=== PATIENT | male | born 1935 | race Caucasian/White ===

== ENCOUNTER 2024-06-11 19:25 | Inpatient (IN) | payer MEDICARE, OTHER, SELFPAY ==
[2024-06-11] VITALS (7 sets, daily range): BP systolic 104–133; BP diastolic 56–85; BMI 33.4
[2024-06-11 14:08] LABS: % Basophils 0.8 % (0-2); % Eosinophils 2.6 % (0-6); % Immature Granulocytes 0.4 % (0-0.5); % Lymphocytes 9.7 % (20.5-51.1); % Monocytes 13.3 % (1.7-9.3); % Neutrophils 73.2 % (42.2-75.2); Absolute Basophils 0.1 10^3/uL (0-0.2); Absolute Eosinophils 0.2 10^3/uL (0-0.7); Absolute Lymphocytes 0.7 10^3/uL (1.2-3.4); Absolute Neutrophils 5.4 10^3/uL (1.4-6.5); Hematocrit 28.9 % (39.0-52.0); Hemoglobin 9.5 g/dL (13.0-18.0); Mean Corp Hgb Conc. 32.9 g/dL (33.0-37.0); Mean Corpuscular Hgb 35.2 pg (27.0-31.0); Mean Platelet Volume 9.8 fL (7.4-10.4); Nucleated Red Blood Cells % 0 % (-); Platelet Count 160 10^3/uL (130-400); Red Cell Dist. Width 18.5 % (11.5-14.5); White Blood Cell Count 7.4 10^3/uL (4.8-10.8)
[2024-06-11 14:23] LABS: ALT (SGPT) 15 U/L (0-50); AST (SGOT) 36 U/L (17-59); Albumin 3.4 g/dl (3.5-5.0); Alkaline Phosphatase 112 U/L (38-126); Blood Urea Nitrogen 24 mg/dl (9-20); Calcium 9.1 mg/dl (8.4-10.2); Carbon Dioxide 28 mmol/L (22-30); Chloride 105 mmol/L (98-107); Glucose 145 mg/dl (70-99); Potassium 3.9 mmol/L (3.5-5.1); Sodium 141 mmol/L (135-145); Total Bilirubin 2.8 mg/dl (0.2-1.3); Total Protein 7.9 g/dl (6.3-8.2); eGFR > 60.00
[2024-06-11 14:29] LABS: NT-proBNP 1890 pg/ml
--- NOTE | 2024-06-11 17:14 | ED.GENMED ---
History of Present Illness
General
Chief Complaint: Swelling
Source: patient and family
Time Seen by Provider: 06/11/24 16:50
History of Present Illness
History of Present Illness:
This patient is an 88-year-old male presents emergency department complaints of progressive swelling both in his legs and especially in his scrotum over the last few weeks. He always has lower extremity edema but is gotten progressively worse
associated with severe scrotal swelling. He notes that it has made urinating more difficult, as he was prescribed 80 mg of Lasix by his primary care doctor recently, and he needs to stand and orient a certain way in order to urinate properly. He
denies hematuria, dysuria, fever, chills, flank pain, chest pain, new shortness of breath, abdominal pain, or other complaints.
Past History
Past History
ED Past Medical History: HTN and Other (Severe TR, severe MR, heart failure with preserved ejection fraction, hypertension, A-fib)
ED Past Surgical History: Other (Hernia)
Social History
Tobacco: Smoker
Alcohol: Daily
Drug: None
Living: with family
Phy Exam
Physical Exam
Physical Exam:
GENERAL: Alert , in no apparent distress
EYE: pupils equal and reactive
NECK: Supple, no significant adenopathy.
ENT: o/p clr, mmm.
CARDIAC: Regular rate and rhythm .
LUNGS: Clear breath sounds bilaterally, no acute respiratory distress, no wheezes/rales/rhonchi
ABDOMEN: Soft, without focal tenderness, no r/g, no cvat
NEUROLOGICAL: Alert and oriented, no focal neuro deficits
SKIN: Warm and dry, skin intact.
MUSCULOSKELETAL: 3+ bilateral lower extremity edema, well perfused.
PSYCH: Normal and appropriate interaction.
: severe bilat scrotal edema with retraction of penis due to assoc edema. No warmth/fluctuance/drainage.
Course
Orders/Labs/Results
Orders:
Orders
06/11/24 13:46
Complete Blood Count/With Diff Urgent
Comprehensive Metabolic Panel Urgent
NT-proBNP Urgent
06/11/24 17:13
Furosemide [Lasix] 80 mg IV NOW STA
06/11/24 17:14
Electrocardiogram (*1) Stat
Reason for Study: Other
Other Reason for Exam: chest pain
Cardiac Monitoring- Treatment ONCE
EKG- Treatment ONCE
06/11/24 17:40
Troponin I Urgent
Abnormal Lab Results
06/11/24
13:46
RBC 2.70 L 10^6/uL
(4.70-6.10)
Hgb 9.5 L g/dL
(13.0-18.0)
Hct 28.9 L %
(39.0-52.0)
MCV 107.0 H fL
(80.0-94.0)
MCH 35.2 H pg
(27.0-31.0)
MCHC 32.9 L g/dL
(33.0-37.0)
RDW 18.5 H %
(11.5-14.5)
Absolute Lymphs (auto) 0.7 L 10^3/uL
(1.2-3.4)
Absolute Monos (auto) 1.0 H 10^3/uL
(0.1-0.6)
Lymphocytes % 9.7 L %
(20.5-51.1)
Monocytes % 13.3 H %
(1.7-9.3)
BUN 24 H mg/dl
(9-20)
Glucose 145 H mg/dl
(70-99)
Total Bilirubin 2.8 H mg/dl
(0.2-1.3)
Albumin 3.4 L g/dl
(3.5-5.0)
06/11/24 13:46
06/11/24 13:46
Vital Signs
Initial and Last Documented VS:
Initial Vital Signs
Temp Pulse Resp BP Pulse Ox
98.3 F 66 20 104/56 97
06/11/24 13:37 06/11/24 13:37 06/11/24 13:37 06/11/24 13:37 06/11/24 13:37
Last Documented Vital Signs
Temp Pulse Resp BP Pulse Ox
98.3 F 69 18 125/58 95
06/11/24 13:37 06/11/24 16:00 06/11/24 16:00 06/11/24 16:00 06/11/24 16:00
Update Note
Update Note:
Patient presents to the Emergency Department with ___swelling
Number and Complexity of Problems Addressed at the Encounter
� Chronic conditions affecting care:
� Acute Exacerbation and/or Progression of Chronic Illness:
� Differential Diagnosis includes: But not limited to venous stasis, hydrocele, heart failure, anasarca etc. etc.
Amount and/or Complexity of Data to be Reviewed and Analyzed
� I performed an independent evaluation of and my interpretation is:
EKG:
CT:
Xrays:
Laboratory Studies: Reviewed by me, nonspecific total bilirubin elevation, BUN elevation likely related to Lasix, mild anemia which is baseline as per daughter
Other:
� Review of other/old records reveals: Patient seen in 2019 and at that time his EF was 63%, echo showed LV that was dilated with biatrial enlargement and severe MR and TR. There was recommendation for valve replacement at that
time, however as per daughter he never saw a headlight adjuster ever since then. He also has a [id number] of 4 at that time and has been resistant to anticoagulation
� Clinical information was obtained by an independent historian: Daughter who is bedside and records
� Prescriptions/Medications Considered but not given:
� Further testing considered but not performed:
Risk of Complications and/or Morbidity or Mortality of Patient Management
� Social determinants of health affecting care:
� Discussion with other providers (PCP, Hospitalists, Consultants, etc):
� Escalation of care including admission/observation vs risk of discharge considered:
ED Attending Note
-
Portions of this chart may have been created with voice recognition software.� Occasional wrong word or��sound alike� substitutions may have occurred due to the inherent limitations of voice recognition software.
Discharge Plan
Departure
Patient Disposition: Admit
Date of Disposition: 06/11/24
Time of Disposition: 18:03
Prescriptions:
No Action
metoprolol tartrate 100 MG tablet
100 mg PO DAILY
hydrochlorothiazide 25 MG tablet
25 mg PO DAILY
lisinopril 40 MG tablet
40 mg PO DAILY
ibuprofen [Advil Liqui-Gel] 200 MG capsule
200 mg PO DAILY
amlodipine 5 MG tablet
5 mg PO DAILY
neomycin-polymyxin B-dexameth 5 ML drops,suspension
1 drp LEFT EYE QID
aspirin [Joy Chewable Aspirin] 81 MG tablet,chewable
81 mg PO DAILY
cholecalciferol (vitamin D3) 1,000 UNITS tablet
5,000 units PO DAILY
Interventions
Interventions:
*Risk Screen - Suicide Last Done: 06/11/24 13:37
*General Assessment Last Done: 06/11/24 13:37
*Neglect/Abuse Screening Last Done: 06/11/24 13:37
DH-Xzmhdk-Hnpiidjtaw Assessment Last Done: 06/11/24 16:56
ED- Cardiac Assessment Last Done: 06/11/24 16:56
ED- Pulmonary Assessment Last Done: 06/11/24 16:56
ED-Skin Assessment Last Done: 06/11/24 16:56
Discharge Date and Time
Print Language: ROMANSH
[2024-06-11] MEDS: LASIX 80 MG IV (17:40)
--- NOTE | 2024-06-11 18:42 | HPS.HSE ---
Family Physician
-
Family Physician: Darien Vasquez
Chief Complaint
-
swelling
History of Present Illness
88-year-old male past medical history of severe tricuspid regurgitation, severe mitral regurgitation, HFpEF, hypertension, presenting for progressive swelling in both of his legs and scrotum for the past few weeks. This has been urinating more
difficult. He was prescribed 80 mg of Lasix by his primary care physician recently. He needs to stand a certain way to urinate properly. Denies any blood in the urine. Denies fevers or chills, flank pain or chest pain or abdominal pain. He does
have shortness of breath with exertion. Denies any cough.
He has been having watery diarrhea for the past week. No abdominal pain or vomiting. No fevers or chills.
Medical History
Past Medical History
Past Medical History: Reports Other (severe tricuspid regurgitation, severe mitral regurgitation, HFpEF, hypertension)
Past Surgical History: Reports None
Social History
Tobacco: Smoker
Alcohol: Daily
Drug: None
Family History
Family History: Not pertinent
Allergies / Home Medications
Allergies reflects when Allergies were last updated in [facility].
Home Medications with original date entered in [facility]
Allergy/Medication List:
Allergies
Allergy/AdvReac Type Severity Reaction Status Date / Time
No Known Allergies Allergy Verified 06/11/24 13:43
Home Medications
amlodipine 5 mg tablet 5 mg PO DAILY 12/03/19
aspirin 81 mg chewable tablet (Joy Chewable Low Dose Aspirin) 81 mg PO DAILY 12/03/19
cholecalciferol (vitamin D3) 25 mcg (1,000 unit) tablet 5,000 units PO DAILY 12/03/19
hydrochlorothiazide 25 mg tablet 25 mg PO DAILY 12/03/19
ibuprofen 200 mg capsule (Advil Liqui-Gel) 200 mg PO DAILY 12/03/19
lisinopril 40 mg tablet 40 mg PO DAILY 12/03/19
metoprolol tartrate 100 mg tablet 100 mg PO DAILY 12/03/19
ktaumwyg-rzuabdoia-yxuciced 3.5 mg/mL-10,000 unit/mL-0.1% eye drops 1 drp LEFT EYE QID 12/03/19
Review of Systems
-
History Source: Patient
Constitutional: Reports No Symptoms
EENT: Reports No Symptoms
Respiratory: Reports No Symptoms
Cardiac: Reports No Symptoms
Abdomen/GI: Reports No Symptoms
: Reports No Symptoms
Musculoskeletal: Reports No Symptoms
Skin: Reports No Symptoms
Neurological: Reports No Symptoms
Endocrine: Reports No Symptoms
Hematologic/Lymphatic: Reports No Symptoms
Psych: Reports No Symptoms
Physical Exam
Vital Signs
Vital Signs
Temp Pulse Resp BP Pulse Ox
98.3 F 69 18 125/58 95
06/11/24 13:37 06/11/24 16:00 06/11/24 16:00 06/11/24 16:00 06/11/24 16:00
Physical Exam
General: Well Developed, Well Nourished and No Apparent Distress
HEENT: NormoCephalic, Moist mucous membranes and Atraumatic
Respiratory: Clear
Cardiac: S1/S2 and Regular Rhythm; No Murmur or Rub
GI: Soft, Non Tender, Non Distended and Normal Bowel Sounds; No Organomegaly
Rectal: Deferred by Provider
Musculoskeletal: No Clubbing, No Cyanosis and No Edema
Skin: No Rash
Neuro: Nonfocal/grossly intact
Laboratory Results
-
06/11/24 13:46
06/11/24 13:46
Laboratory Results
Total Bilirubin 2.8 mg/dl (0.2-1.3) H 06/11/24 13:46
AST 36 U/L (17-59) 06/11/24 13:46
ALT 15 U/L (0-50) 06/11/24 13:46
Alkaline Phosphatase 112 U/L (38-126) 06/11/24 13:46
Troponin I Cancelled 06/11/24 17:40
Data Reviewed
-
Lab Data: Labs Reviewed by me
Old Records: Reviewed
Impression/Plan
-
IMPRESSION:
PLAN:
# Acute CHF exacerbation
# Severe tricuspid regurgitation
# Severe mitral regurgitation
# Scrotal edema, possible urinary retention
-Check I's and O's, daily weights
-80 IV Lasix daily
-Bladder scan protocol
-Cardiology consulted
# Diarrhea likely viral gastroenteritis
-Check stool studies, C. difficile
-Clear liquid diet
Essential hypertension
-Continue amlodipine,
Paroxysmal atrial fibrillation
-Continue metoprolol
DNR/DNI
DVT prophylaxis�heparin
clear liquid diet
[2024-06-11 19:21] LABS: Troponin I 0.018 ng/ml
[2024-06-11] MEDS: HEPARIN 5000 UNITS SC (21:05)
[2024-06-12] VITALS (12 sets, daily range): BP systolic 100–139; BP diastolic 49–76; BMI 33.1; BMI 33.2
[2024-06-12 06:36] LABS: Hematocrit 27.3 % (39.0-52.0); Hemoglobin 9.3 g/dL (13.0-18.0); Mean Corp Hgb Conc. 34.1 g/dL (33.0-37.0); Mean Corpuscular Hgb 37.1 pg (27.0-31.0); Mean Corpuscular Volume 108.8 fL (80.0-94.0); Mean Platelet Volume 10.2 fL (7.4-10.4); Platelet Count 146 10^3/uL (130-400); Red Blood Cell Count 2.51 10^6/uL (4.70-6.10); Red Cell Dist. Width 18.2 % (11.5-14.5); White Blood Cell Count 4.5 10^3/uL (4.8-10.8)
[2024-06-12 07:20] LABS: Blood Urea Nitrogen 24 mg/dl (9-20); Calcium 8.8 mg/dl (8.4-10.2); Carbon Dioxide 27 mmol/L (22-30); Chloride 103 mmol/L (98-107); Estimated Creatinine Clearance 101 ml/min; Glucose 89 mg/dl (70-99); Potassium 3.5 mmol/L (3.5-5.1); Sodium 140 mmol/L (135-145); eGFR > 60.00
[2024-06-12] MEDS: HEPARIN 5000 UNITS SC ×2 (07:37→20:34)
[2024-06-12] MEDS: LASIX 80 MG IV ×2 (07:37→16:27)
--- NOTE | 2024-06-12 07:51 | CON.CAR ---
Addendum entered and electronically signed by Elias Pierce MD 06/12/24 13:14:
I saw and examined the patient.
The WARPING MILL OPERATOR's note was reviewed and I agree with the note.
Comment: 88-year-old male (known to Dr. Vargas, his primary television program director), with HFpEF, severe tricuspid regurgitation, severe mitral regurgitation, permanent atrial fibrillation (refuses oral anticoagulation), and hypertension who presented to the
emergency department last evening with a chief complaint of progressive swelling
Swelling already improving wiht IV diuresis, will continue
- IV Diuresis
Original Note:
Consultation
Consultation Request
Date/Time Consultation Requested: 06/11/2024 22:50
Date/Time Consultation Performed: 06/12/2024 07:50
Requesting Provider: Dr. Nevarez
Performing Provider: FABIENNE Haddad for Dr. Pierce
Reason for Consultation: Acute heart failure
Medical History
-
Chief Complaint: Progressive swelling
History of Present Illness:
Todd Sauceda is an 88-year-old male (known to Dr. Vargas, his primary television program director), with HFpEF, severe tricuspid regurgitation, severe mitral regurgitation, permanent atrial fibrillation (refuses oral anticoagulation), and hypertension who
presented to the emergency department last evening with a chief complaint of progressive swelling. His swelling has been getting worse over the past several weeks. His primary care physician gave him furosemide. He does not feel like he is
voiding that often. He also has scrotal swelling which he states causes trouble with urination. He also reports he has been having diarrhea for the past week. No chest pain. No shortness of breath. No orthopnea. No PND
Past Medical History
Past Medical History: Arrhythmias (Permanent atrial fibrillation), CHF, HTN and Valvular Disease (Mitral regurgitation, tricuspid regurgitation)
Past Surgical History: Orthopedic
Social History
Tobacco: Smoker
Alcohol: Daily (1 shot of fanta and 1 beer every night)
Personal: Single
Living: With Family
Employment: Retired
Family History
Family History: Reviewed & Not Pertinent
Allergies / Home Medications
Allergy/AdvReac Type Severity Reaction Status Date / Time
No Known Allergies Allergy Verified 06/11/24 13:43
�Medication �Instructions �Recorded �Confirmed �Type
amlodipine 5 mg tablet 5 mg PO DAILY 12/03/19 06/11/24 History
aspirin 81 mg chewable tablet 81 mg PO DAILY 12/03/19 12/03/19 History
(Joy Chewable Low Dose Aspirin)
ibuprofen 200 mg capsule (Advil 200 mg PO DAILY 12/03/19 12/03/19 History
Liqui-Gel)
lisinopril 40 mg tablet 40 mg PO DAILY 12/03/19 12/03/19 History
metoprolol tartrate 100 mg tablet 100 mg PO DAILY 12/03/19 12/03/19 History
ferrous sulfate 325 mg (65 mg mg 06/11/24 History
iron) tablet (Iron (ferrous
sulfate))
furosemide 40 mg tablet 40 mg BID 06/11/24 06/11/24 History
multivitamin 1 cap 06/11/24 History
potassium 20 mg chewable tablet 20 mg PO 06/11/24 History
Review of Systems
-
History Source: Patient
All other systems: Negative unless noted
Constitutional: Fatigue
EENT: No Symptoms
Respiratory: No Symptoms
Cardiac: No Symptoms
Abdomen/GI: No Symptoms
: No Symptoms
Musculoskeletal: Edema
Skin: No Symptoms
Neurological: No Symptoms
Endocrine: No Symptoms
Hematologic/Lymphatic: No Symptoms
Physical Exam
Vital Signs
Temp Pulse Resp BP Pulse Ox
97.9 F 74 26 104/59 91
06/12/24 07:48 06/12/24 07:45 06/12/24 07:45 06/12/24 07:37 06/12/24 07:45
Lab Results
06/12/24 05:10
06/12/24 05:10
Troponin I 0.018 ng/ml 06/11/24 18:44
Uhn-L-Litdnghnbtx Pept 1890 pg/ml 06/11/24 13:46
Physical Exam
General: Well Developed, Well Nourished, No Apparent Distress and Comfortable
HEENT: Normocephalic, Anicteric, Moist Mucous Membranes and Other (Hard of hearing)
Respiratory: Non Labored Respirations
Cardiac: S1/S2, Irregular Rhythm, Murmur (Holosystolic murmur /) and Peripheral Edema (+3 pitting LE edema)
Breast: Deferred by me
GI: Soft, Non Tender, Non Distended and Normal Bowel Sounds
Rectal: Deferred by Provider
Genito-urinary: No Costovertebral Tender
Musculoskeletal: No Clubbing and No Cyanosis
Skin: Warm and Dry
Neuro: AO x 3
Hematologic/Lymphatic: No Lymphadenopathy
Psych: Calm
Impression / Plan
-
I/P: 88M HFpEF, severe tricuspid regurgitation, severe mitral regurgitation, permanent atrial fibrillation (refuses oral anticoagulation), and hypertension who presented to the emergency department last evening with a chief complaint of progressive
swelling.
Primary television program director: Dr. Vargas
HFpEF, acute on chronic
-Continue furosemide, increase to twice daily dosing, this requires intensive monitoring
-Case management sprays SGLT2i
-Unclear if he is on amlodipine at home, if so would transition to another agent in the setting of lower extremity edema
-Heart failure education
-Trend daily weight, I/O, and BMP with diuresis
-Echocardiogram today
Permanent atrial fibrillation
-Rate controlled without AV tomi agent
-Oral Anticoagulation: None, refused
-[id number]: score at least 4 (Heart failure, HTN, age 75 or more)
Hypertension
-Home medication list needs to be updated
-BP soft with diuresis, follow
Valvular heart disease
-Severe tricuspid regurgitation by SALENA 11/2019
-Severe mitral regurgitation by SALENA 11/2019 but +1-2 by cardiac catheterization
Anemia, per primary
Diarrhea, per primary
SUBJECTIVE:
As above.
Data Reviewed
-
EKG: Report Reviewed by me (Atrial fibrillation, IVCD, rate 66)
Radiology: Report Reviewed by me
Medical Tests (Nuc Med, Echo etc): Report Reviewed by me (Echocardiogram and cardiac catheterization as above)
Labs: Labs Reviewed by me
Old Records: Reviewed
--- NOTE | 2024-06-12 10:06 | PHANOTE ---
MED REC NOTE- PATIENT DAUGHTER EXPLAINED THAT THE LISINOPRIL 40MG DAILY HAS BEEN ON HOLD SINCE JUNE 05 2024.
--- NOTE | 2024-06-12 10:09 | WOUNDNOTE ---
SACRUM/L BUTTOCK BRUISE
--- NOTE | 2024-06-12 10:10 | WOUNDNOTE ---
R LATERAL LOWER LEG
--- NOTE | 2024-06-12 10:11 | WOUNDNOTE ---
WON RN note: Patient admitted with increased leg and scrotal swelling.
See H&P for complete history. Lives with daughter Carmela and grandson.
PMH: Reports Other (severe tricuspid regurgitation, severe mitral regurgitation, HFpEF, hypertension)
Wound Location and type/assessment: Patient admitted with: Leg edema- lymphedema, R lateral lower leg venous ulcer. + audible pulses with Doppler, skin very dry and scaly. Daughter Carmela at bedside states legs always pink at baseline, much less
edema compared to admission. Patient able to turn with some assistance, has bruise on L buttock, sacrum is blanchable red, no pressure ulcers visible. MASD /dry irritated skin on Kassidy rectal area and scrotum. Heels are both intact, slightly boggy.
Daughter confirmed he sits allot, states for 1 week he has been sitting in a rocking chair with legs not being elevated. Also daughter states he uses a bed maloney instead of ambulating to BR, bruise suspected from bedpan. She bought a sit to stand
recliner chair for her Dad but he refuses to use it.
Appetite: Good.
Pressure redistribution devices in place: On Accumax, turning schedule and pillow under calves to offload heels.
Plan: Sacral clear silicone dressing applied to Sacrum, change q 3-4 days with sacral silicone foam, or if soiled. R lateral lower leg applied adaptic and silicone foam change q other day. foams applied to heels to protect. Moisturized legs, will
order mineral oil for tomorrow. With assist from nurse applied b/l knee high joshua wraps. Teaching with patient and daughter regarding skin/wound care, compression to lower legs, importance of leg elevation and that patient should use recliner chair
instead of hard rocking chair. Pressure ulcer prevention measures reviewed with patient and daughter. Patient states he understands. Will confirm orders with hospitalist and updated nurse Ramana.
Updated care plan and will follow as needed.
Note to case management of equipment requested for discharge: VN
Recommend follow up at wound care center upon discharge.
--- NOTE | 2024-06-12 12:32 | W.PN.HOSP.TC ---
Today's Communication/Plan
-
see outlined plan
Assessment / Plan
Assessment / Plan
Assessment:
acute on chronic HFpEF
Underlying valvular heart disease (severe MR, severe TR)
- update Echo
- continue IV Lasix; requires intensive monitoring of I/O, weights, lytes
Permanent A. Fib
- continue Metoprolol
- refused anticoagulation ([id number]: score at least 4 (Heart failure, HTN, age 75 or more)
Gastroenteritis
- stool studies pending
- clear liquid diet for now
Essential HTN
- hold CCB
- may need alternative agent
Anemia
- check anemia workup
DVT ppx: SC Heparin
Code: DNR/DNI
Anticipated Discharge: > 48 hours
Subjective/Interval History
-
Date of Service: June 12, 2024
feels improved, less SOB
weight 116kg from 118kg
Objective Data
-
Labs:
Laboratory Results
06/12/24
05:10
WBC 4.5 L
Hgb 9.3 L
Hct 27.3 L
Plt Count 146
Sodium 140
Potassium 3.5
Chloride 103
Carbon Dioxide 27
BUN 24 H
Creatinine 0.7
Glucose 89
Calcium 8.8
Vital Signs:
Vital Signs
Temp Pulse Resp BP Pulse Ox
97.9 F 74 26 104/59 91
06/12/24 07:48 06/12/24 07:45 06/12/24 07:45 06/12/24 07:37 06/12/24 07:45
I&O
06/11/24 06/12/24 06/13/24
06:59 06:59 06:59
Intake Total 240 / 240
Output Total 1200 / 1200 1100 / 1100
Balance -960 / -960 -1100 / -1100
Physical Exam
-
General: No Apparent Distress
HEENT: Normocephalic and Atraumatic
Respiratory: Negative Wheezes
Cardiac: Regular Rhythm and S1/S2
GI: Soft and Nontender
Genito-urinary: No Costovertebral Tender
Musculoskeletal: No Edema
Neuro: AO x 3
Hematologic / Lymphatic: No Lymphadenopathy
Psych: Calm
Data Reviewed
-
Total Time Spent with Patient (in minutes): 51
Labs: Labs Reviewed by me
--- NOTE | 2024-06-12 14:21 | CM ---
Addendum entered by Lelo Luis 06/12/24 14:30:
Of note, pt has a ramp entrance
Original Note:
CM met with pt and dtr/GIORGIO/Carmela bedside
Pt [place] the same property as his dtr, his 39 y/o grandson resides him and is home throughout the day
Pt is typically indep with use of a WW
Now uses a wheelchair while in the community as of a few weeks ago
Grandson or dtr provided supervision and coaxing cueing for personal care tasks
Family helps with home chores
Pt has no hx with VN/SNF
Denies financial insecurities
PCP- Darien Vasquez
Rx- Manfred
CM consulted for med pricing
Call [facility] [phone]
Farxiga 10 mg QD
Initially $277.14-30 day retail and $482.77-90 day mail order as pt has not met deductible
After deductible is met, 30 day retail- $117 and 90 day mail order- $322
Jardiance 10 mg QD
Initially $282.94-30 days and $498.76-90 day mail order as pt has not met deductible
After deductible is met, 30 day retail-$122 and 90 day mail order-$338
Update to cardio/Melinda
Pt will likely benefit from PT/OT once appropriate
Dtr noted she would like a hospital bed arranged on dc if possible, would be willing to take on rental costs if needed
Discharge Disposition- anticipate home, follow for VN or higher level needs
--- NOTE | 2024-06-12 18:20 | PTCARENOTE ---
1814 Pt arrived from ER via bed. Pt alert and verbalizing. Noted MD orders, place on telemetry current heart rhythm Atrial Fib (heart rate 80's).
VS stable, pulse ox 96% on room air. Pt's daughter at bedside,continue to monitor pt closely.
[2024-06-13 04:10] VITALS: BP 125/72
[2024-06-13 05:18] VITALS: BMI 31.9
[2024-06-13 07:30] VITALS: BP 139/73
[2024-06-13 07:37] LABS: Hematocrit 27.1 % (39.0-52.0); Hemoglobin 9.1 g/dL (13.0-18.0); Mean Corp Hgb Conc. 33.6 g/dL (33.0-37.0); Mean Corpuscular Volume 104.2 fL (80.0-94.0); Mean Platelet Volume 9.5 fL (7.4-10.4); Platelet Count 154 10^3/uL (130-400); Red Cell Dist. Width 18.2 % (11.5-14.5)
[2024-06-13 08:03] LABS: Blood Urea Nitrogen 19 mg/dl (9-20); Calcium 8.7 mg/dl (8.4-10.2); Carbon Dioxide 31 mmol/L (22-30); Chloride 98 mmol/L (98-107); Estimated Creatinine Clearance 99 ml/min; Glucose 90 mg/dl (70-99); Iron 56 ug/dl (49-181); Magnesium 1.6 mg/dl (1.6-2.3); Potassium 3.2 mmol/L (3.5-5.1); Sodium 137 mmol/L (135-145); eGFR > 60.00
[2024-06-13 08:13] LABS: Percent Saturation 21 % (20-50); Total Iron Binding Capacity 264 ug/dl (261-462)
[2024-06-13] MEDS: HEPARIN SC ×2 (08:29→08:37)
[2024-06-13] MEDS: THERAGRAN 1 TABLET PO (08:30)
[2024-06-13] MEDS: LASIX 80 MG IV ×2 (08:30→17:38)
[2024-06-13] MEDS: KCL 20 MEQ PO (08:30)
[2024-06-13] MEDS: LOW STRENGTH ASPIRIN 81 MG PO (08:30)
[2024-06-13 08:40] LABS: Ferritin 82.1 ng/ml (17.9-464.0)
[2024-06-13 09:11] LABS: Folate 14.1 ng/ml (2.76-20); Vitamin B12 839 pg/ml (239-931)
--- NOTE | 2024-06-13 10:13 | W.PN.HOSP.TC ---
Today's Communication/Plan
-
nosebleed management with Aquaphor and saline spray
continue IV Lasix
continue Metoprolol
Echo pending
Hospice consulted after discussion with daughter Carmela
Assessment / Plan
Assessment / Plan
Assessment:
acute on chronic HFpEF
Underlying valvular heart disease (severe MR, severe TR)
- update Echo
- continue IV Lasix; requires intensive monitoring of I/O, weights, lytes
- patient has previously refused and continues to refuse any intervention for valves
- d/w daughter and she has requested hospice consult. hospice/CM made aware.
Permanent A. Fib
- continue Metoprolol
- refused anticoagulation ([id number]: score at least 4 (Heart failure, HTN, age 75 or more)
Gastroenteritis
- C. diff and Norovirus negative. other stool studies pending
- advance diet to regular
Chronic nosebleeds with active nosebleed today
- at home takes saline BID And also vaseline TID; will provide Saline TID and Aquaphor TID
- if no improvement, may need ENT input
Essential HTN
- hold CCB per Cardiology
- may need alternative agent
Anemia, normocytic
- anemia indices are normal
- await hospice evaluation before sending any additional workup
- per daughter, PCP concerned for a hematological malignancy process
Hypokalemia
- replete prn
- check mag level
DVT ppx: SCDs with nosebleed
Code: DNR/DNI
Anticipated Discharge: > 48 hours
Subjective/Interval History
-
Date of Service: June 13, 2024
suffering from chronic nosebleeds this morning - at home takes saline BID And also vaseline TID. Has seen ENT previously.
weight down to 112kg today
Objective Data
-
Labs:
Laboratory Results
06/13/24
07:11
WBC 5.0
Hgb 9.1 L
Hct 27.1 L
Plt Count 154
Sodium 137
Potassium 3.2 L
Chloride 98
Carbon Dioxide 31 H
BUN 19
Creatinine 0.7
Glucose 90
Calcium 8.7
Vital Signs:
Vital Signs
Temp Pulse Resp BP Pulse Ox
98.2 F 93 24 139/73 96
06/13/24 07:30 06/13/24 08:30 06/13/24 07:30 06/13/24 08:30 06/13/24 07:30
I&O
06/12/24 06/13/24 06/14/24
06:59 06:59 06:59
Intake Total 240 / 240
Output Total 1200 / 1200 1100 / 1100
Balance -960 / -960 -1100 / -1100
Physical Exam
-
General: No Apparent Distress
HEENT: Normocephalic, Atraumatic and Other (+ nosebleed)
Respiratory: Negative Wheezes
Cardiac: Irregular Rhythm and Murmur
Musculoskeletal: Edema, Right Lower Extrem and Edema, Left Lower Extrem
Neuro: AO x 3
Psych: Calm
Data Reviewed
-
Total Time Spent with Patient (in minutes): 51
Labs: Labs Reviewed by me
--- NOTE | 2024-06-13 10:25 | W.PN.CD ---
Today's Communication / Plan
-
start metoprolol succinate 100mg qpm
echo for prognosis
hospice eval
continue lasix
Impression / Plan
-
I/P: 88M HFpEF, severe tricuspid regurgitation, severe mitral regurgitation, permanent atrial fibrillation (refuses oral anticoagulation), and hypertension who presented to the emergency department last evening with a chief complaint of progressive
swelling.
Primary claim analyst: Dr. Vargas
HFpEF, acute on chronic
-Continue furosemide, increase to twice daily dosing, this requires intensive monitoring
-Case management sprays SGLT2i
-Unclear if he is on amlodipine at home, if so would transition to another agent in the setting of lower extremity edema
-Heart failure education
-Trend daily weight, I/O, and BMP with diuresis
-Echocardiogram today to help with prognosis
Permanent atrial fibrillation
-Rate controlled taking metoprolol tartrate once as day, will transition to succinate at night
-Oral Anticoagulation: None, refused
-[id number]: score at least 4 (Heart failure, HTN, age 75 or more)
Hypertension
-Home medication: metoprolol tartrate 100mg daily, amlodipoine 5mg daily, dtr reports pcp stopped his lisinopril 40mg daily last week
-prefer acei to ccb for afterload reduction and to avoid worsened edema
-will start with metoprolol for now.
Valvular heart disease
-Severe tricuspid regurgitation by [facility] 11/2019
-Severe mitral regurgitation by [facility] 11/2019 but +1-2 by cardiac catheterization
-he isnt interested in any further interventions, with acute chf and severe valve disease hospice being pursued which is reasonable.
epistaxis: follows with ent typically
Anemia, per primary
Diarrhea, per primary
SUBJECTIVE:
he is feeling better, having a nosebleed.
Physical Exam
Vital Signs/Labs
Vital Signs
Temp Pulse Resp BP Pulse Ox
98.2 F 93 24 139/73 96
06/13/24 07:30 06/13/24 08:30 06/13/24 07:30 06/13/24 08:30 06/13/24 07:30
06/12/24 06/13/24 06/14/24
06:59 06:59 06:59
Actual Weight 118 kg 112.718 kg
06/13/24 07:11
06/13/24 07:11
Magnesium 1.6 mg/dl (1.6-2.3) 06/13/24 07:11
06/11/24
13:46
[id number] Pept 1890
LAB Results
06/11/24 06/11/24
17:40 18:44
Troponin I Cancelled 0.018
Physical Exam
Constitutional: No acute distress
Cardiovascular: Systolic murmur absent, Diastolic murmur absent, Rhythm/rate is irregular, Pedal edema present (1-2+ b/l) and JVD present (13 at 90)
Respiratory: Respiratory effort normal and Crackles Present (left base)
Neuro/Psych: AO x 3
Data Reviewed
-
Date of Service: June 13, 2024
Medical Decision Making: Review of Case with other Provider (Dr Barajas, will get echo continue diuresis and change bb formulation also discussed with his daughter and nurse jewel)
EKG: Other (tele fib)
--- NOTE | 2024-06-13 11:10 | HOSPNOTE ---
Called daughter and had to leave a message. Will await for a call back.
[2024-06-13] MEDS: KCL 40 MEQ PO (11:25)
[2024-06-13] MEDS: HYDROPHOR 1 APPLIC TOPICAL ×3 (11:26→20:28)
[2024-06-13] MEDS: OCEAN, SALINE MIST 1 SPRAYS NASAL ×2 (11:26→17:39)
[2024-06-13 11:30] VITALS: BP 121/64
--- NOTE | 2024-06-13 12:44 | CM ---
application release manager reviewed patient's chart and spoke patient and daughter, patient's physician is requesting hospice for patient options reviewed and patient's daughter has selected [facility], referral sent to [facility].
Plan; Home with family and [facility].
--- NOTE | 2024-06-13 13:50 | HOSPNOTE ---
Spoke with family and explained hospice and the philosophy. The family is in agreement. No transport needed daughter will drive. Equipment was ordered for delivery in the am. Daughter will pickling operator patient at 2pm. Attending and CM aware.
[2024-06-13 15:41] VITALS: BP 141/69
[2024-06-13] MEDS: TOPROL XL 100 MG PO (17:39)
[2024-06-13 19:53] VITALS: BP 125/66
[2024-06-13] MEDS: OCEAN, SALINE MIST 2 SPRAYS NASAL (20:28)
[2024-06-13 22:55] VITALS: BP 101/58
[2024-06-14 03:37] VITALS: BP 117/68
[2024-06-14 06:00] VITALS: BMI 30.9
[2024-06-14 07:30] VITALS: BP 124/65
[2024-06-14] MEDS: LOW STRENGTH ASPIRIN 81 MG PO (08:07)
[2024-06-14] MEDS: THERAGRAN 1 TABLET PO (08:07)
[2024-06-14] MEDS: KCL 20 MEQ PO (08:07)
[2024-06-14 08:08] LABS: Hematocrit 25.3 % (39.0-52.0); Hemoglobin 8.9 g/dL (13.0-18.0); Mean Corp Hgb Conc. 35.2 g/dL (33.0-37.0); Mean Corpuscular Hgb 36.8 pg (27.0-31.0); Mean Corpuscular Volume 104.5 fL (80.0-94.0); Mean Platelet Volume 9.8 fL (7.4-10.4); Platelet Count 166 10^3/uL (130-400); Red Blood Cell Count 2.42 10^6/uL (4.70-6.10); Red Cell Dist. Width 17.9 % (11.5-14.5); White Blood Cell Count 5.4 10^3/uL (4.8-10.8)
[2024-06-14] MEDS: HYDROPHOR 1 APPLIC TOPICAL ×2 (08:08→08:09)
[2024-06-14] MEDS: LASIX 80 MG IV (08:08)
[2024-06-14] MEDS: OCEAN, SALINE MIST 1 SPRAYS NASAL (08:09)
[2024-06-14 08:46] LABS: Blood Urea Nitrogen 17 mg/dl (9-20); Calcium 8.5 mg/dl (8.4-10.2); Carbon Dioxide 34 mmol/L (22-30); Chloride 97 mmol/L (98-107); Estimated Creatinine Clearance 86 ml/min; Glucose 85 mg/dl (70-99); Potassium 3.6 mmol/L (3.5-5.1); Sodium 137 mmol/L (135-145); eGFR > 60.00
--- NOTE | 2024-06-14 09:34 | W.PN.HOSP.TC ---
Today's Communication/Plan
-
dc to home hospice
Assessment / Plan
Assessment / Plan
Assessment:
acute on chronic HFpEF
Underlying valvular heart disease (severe MR, severe TR)
- Echo: Normal left ventricular size, wall thickness and systolic function. No regional wall motion abnormalities are seen. LV ejection fraction is 61% by Gardiner's method of discs. Diastolic function indeterminate.
Dilated right ventricle with normal right ventricular systolic function. Moderate left atrial dilation. Severe right atrial dilation. Calcified, thickened, trileaflet aortic valve with restricted leaflet motion and mild aortic stenosis. Moderate to
severe eccentric mitral regurgitation. The IVC is severely dilated and does not collapse. Right atrial pressure is estimated at 18 mmHg. Severe pulmonary hypertension. PASP estimated at 61 mmHg.
- patient has previously refused and continues to refuse any intervention for valves
- d/w daughter and patient; planned for home hospice today
- dc on Lasix 60mg BID for edema comfort/control
Permanent A. Fib
- continue Metoprolol
- refused anticoagulation ([id number]: score at least 4 (Heart failure, HTN, age 75 or more)
Gastroenteritis
- C. diff and Norovirus negative. other stool studies pending
- continue regular diet
Chronic nosebleeds with active nosebleed today
- at home takes saline BID And also vaseline TID; will provide Saline TID and Aquaphor TID
- if no improvement, may need ENT input
Essential HTN
- hold CCB per Cardiology
- may need alternative agent
Anemia, normocytic
- anemia indices are normal
- await hospice evaluation before sending any additional workup
- per daughter, PCP concerned for a hematological malignancy process
Hypokalemia
- replete prn
- normal mag level
DVT ppx: SCDs with nosebleed
Code: DNR/DNI
More than 30 minutes spent in discharge including
Final examination of the patient
Summarizing hospital stay
Instructions for continuing care to all relevant caregivers
Preparation of discharge records, prescriptions, and referral forms
Total time spent (in minutes): 41
Anticipated Discharge: Today
Subjective/Interval History
-
Date of Service: June 14, 2024
nosebleeds have resolved
feels 'better than before'
Objective Data
-
Labs:
Laboratory Results
06/14/24
07:02
WBC 5.4
Hgb 8.9 L
Hct 25.3 L
Plt Count 166
Sodium 137
Potassium 3.6
Chloride 97 L
Carbon Dioxide 34 H
BUN 17
Creatinine 0.8
Glucose 85
Calcium 8.5
Vital Signs:
Vital Signs
Temp Pulse Resp BP Pulse Ox
98.3 F 73 18 124/65 95
06/14/24 07:30 06/14/24 08:08 06/14/24 07:30 06/14/24 08:08 06/14/24 07:30
I&O
06/13/24 06/14/24 06/15/24
06:59 06:59 06:59
Intake Total 480 / 480
Output Total 1100 / 1100 1200 / 1200
Balance -1100 / -1100 -720 / -720
Physical Exam
-
General: No Apparent Distress
HEENT: Normocephalic and Atraumatic
Respiratory: Negative Wheezes
Cardiac: Regular Rhythm and S1/S2
GI: Soft and Nontender
Genito-urinary: No Costovertebral Tender
Musculoskeletal: No Edema
Neuro: AO x 3
Psych: Calm
Data Reviewed
-
Total Time Spent with Patient (in minutes): 42
Labs: Labs Reviewed by me
--- NOTE | 2024-06-14 09:40 | W.DS.TRANS ---
DC Summary - Test Case Developer
-
Discharge Instructions:
Discharge Diagnosis/Procedures acute CHF with advanced valvular heart disease
Diet Regular
Activity As tolerated,No restrictions
Other Services Hospice
Instructions: *[facility] Heart Failure Instructions
Stand-Alone Forms:
Changes to Home Medications: No
Discharge Medications:
DC Medications w/original date entered in [employer]
aspirin 81 mg chewable tablet (Joy Chewable Low Dose Aspirin) 81 mg PO DAILY 12/03/19
ferrous sulfate 137 mg (45 mg iron) tablet,extended release (Slow Fe) 137 mg PO BID 06/12/24
potassium chloride 20 mEq tablet,extended release 20 meq PO DAILY 06/12/24
therapeutic multivitamin 1 tab PO DAILY 06/12/24
furosemide 20 mg tablet (Lasix) 60 mg (3 x 20 mg) PO BID #180 tabs 06/14/24
metoprolol succinate 100 mg tablet,extended release 24 hr 100 mg PO QPM #30 tabs 06/14/24
Home Medication Changes
Pending Results: No
Total time spent discharging patient (in min): 41
--- NOTE | 2024-06-14 09:41 | W.DS.TRANS ---
DC Summary - System Administrator
-
Discharge Instructions:
Discharge Diagnosis/Procedures acute CHF with advanced valvular heart disease
Diet Regular
Activity As tolerated,No restrictions
Other Services Hospice
Instructions: *[facility] Heart Failure Instructions
Stand-Alone Forms:
Changes to Home Medications: No
Discharge Medications:
DC Medications w/original date entered in [employer]
aspirin 81 mg chewable tablet (Joy Chewable Low Dose Aspirin) 81 mg PO DAILY 12/03/19
ferrous sulfate 137 mg (45 mg iron) tablet,extended release (Slow Fe) 137 mg PO BID 06/12/24
potassium chloride 20 mEq tablet,extended release 20 meq PO DAILY 06/12/24
therapeutic multivitamin 1 tab PO DAILY 06/12/24
furosemide 20 mg tablet (Lasix) 60 mg (3 x 20 mg) PO BID #180 tabs 06/14/24
metoprolol succinate 100 mg tablet,extended release 24 hr 100 mg PO QPM #30 tabs 06/14/24
Home Medication Changes
Pending Results: No
--- NOTE | 2024-06-14 11:10 | CM ---
Home today with [facility], daughter to pick patient up at 2pm.
Plan; Home today with [facility].
[2024-06-14 11:22] VITALS: BP 129/67
== END 2024-06-14 14:26 | disposition hospice, home (50) | DRG 291 ==
LOC: 4 WEST ACU 19:25
PROVIDERS: Emergency Medicine; ADMITTING PHYSICIAN Hospitalist; ATTENDING PHYSICIAN Internal Medicine; CONSULT PHYSICIAN Internal Medicine Cardiovascular Disease; EMERGENCY PHYSICIAN Emergency Medicine; FAMILY PHYSICIAN Family Medicine
DX: I11.0 Hypertensive heart disease with heart failure (principal); I50.33 Acute on chronic diastolic (congestive) heart failure; I48.21 Permanent atrial fibrillation; I27.20 Pulmonary hypertension, unspecified; I08.1 Rheumatic disorders of both mitral and tricuspid valves; R04.0 Epistaxis; D64.9 Anemia, unspecified; E87.6 Hypokalemia
CPT/HCPCS: 71045; 80048; 80053; 82607; 82728; 82746; 83540; 83550; 83735; 83880; 84484; 85025; 85027; 87045; 87046; 87324; 87427; 87449; 87798; 93005; 93306; 96374; 99285; 99406